=== PATIENT | male | born 1985 | race African-American/Black ===

== ENCOUNTER 2020-02-13 08:09 | Emergency (ER) | payer OTHER, SELFPAY ==
[2020-02-13 08:20] VITALS: BP 170/100; PULSE 78; RESP 20; TEMP 36.8; O2SAT 100
--- NOTE | 2020-02-13 09:07 | PC.NURSE ---
0820 prior to triage pt asks if a doctor can give him medication for htn. informed he would be seen and evaluated by a nurse practioner at our facility. states he does not want to be seen here left at this time. voices no c/o, cheerful, in no apparent distress.
== END 2020-02-13 09:07 | disposition left against medical advice (07) ==
PROVIDERS: Emergency Provider Internal Medicine Hematology & Oncology
DX: Z53.21 Procedure and treatment not carried out due to patient leaving prior to being seen by health care provider (principal)
CPT/HCPCS: 99199